=== PATIENT | female | born 1960 | race Caucasian/White ===

== ENCOUNTER 2016-11-15 07:55 | Day surgery (SDC) | payer OTHER ==
--- NOTE | ~2016-11-15 | EGD ---
EGD REPORT [facility] [address] [place] [address] NAME: JAYLIN MURPHY : 62 STATUS : REG [facility] [place] PAT#: [id number] AGE: 56 ADM/REG DATE : 11/15/16 MR#: [id number] REPORT SERV DATE: 11/15/16 DICTATED BY: GARY JUSTICE DATE: 11/15/16 REPORT STATUS : Draft TRANSCRIBED BY: [facility] DATE: 11/15/16 Endoscopy Center Patient Name: Jaylin Murphy Date of : 1960 Attending MD: GARY JUSTICE MD Procedure Date No Time: 11/15/2016 Procedure: Colonoscopy Indications: Colon cancer screening in patient at increased risk: Family history of colon polyps, Last colonoscopy: 2010 Referring MD: JANAY MCGRATH Medicines: See the Anesthesia note for documentation of the administered medications Complications: No immediate complications. Procedure: Pre-Anesthesia Assessment: - ASA Grade Assessment: II - A patient with mild systemic disease. After I obtained informed consent, the scope was passed under direct vision. Throughout the procedure, the patient's blood pressure, pulse, and oxygen saturations were monitored continuously. The PCF [id number] was introduced through the anus and advanced to the cecum, identified by appendiceal orifice and ileocecal valve. The colonoscopy was performed without difficulty. The patient tolerated the procedure well. The quality of the bowel preparation was adequate. Minimal fecal debris. Findings: The perianal and digital rectal examinations were normal. Internal hemorrhoids were found during retroflexion and were small. Impression: - Internal hemorrhoids. Recommendation: - Patient has a contact number available for emergencies. The signs and symptoms of potential delayed complications were discussed with the patient. Return to normal activities tomorrow. Written discharge instructions were provided to the patient. - Regular diet. - Continue present medications. - Repeat colonoscopy in 5 years for screening purposes. Procedure Code(s): --- Professional --- 50584, Colonoscopy, flexible, proximal to splenic flexure; diagnostic, with or without collection of specimen(s) by brushing or washing, with or without EGD REPORT [facility] [address] [place] [place] [place] [address] NAME: JAYLIN MURPHY : [birth year] STATUS : REG [facility]#: [id number] AGE: 56 ADM/REG DATE : 11/15/16 MR#: [id number] REPORT SERV DATE: 11/15/16 DICTATED BY: GARY JUSTICE DATE: 11/15/16 REPORT STATUS : Draft TRANSCRIBED BY: [employer] DATE: 11/15/16 colon decompression (separate procedure) Diagnosis Code(s): --- Professional --- K64.8, Other hemorrhoids Z12.11, Encounter for screening for malignant neoplasm of colon Z83.71, Family history of colonic polyps CPT copyright 2013 [employer]. All rights reserved. The codes documented in this report are preliminary and upon sorority supervisor review may be revised to meet current compliance requirements. Gary Justice MD GARY JUSTICE MD 11/15/2016 9:41 AM This report has been signed electronically. Number of Addenda: 0 Note Initiated On: 11/15/2016 9:20 AM Scope Withdrawal Time 0 hours 6 minutes 12 seconds [address] [place] [id number]
[~2016-11-15 07:55] MED LIST: ARMOUR THYRO15 MG PO; ARMOUR THYRO60 MG PO; MINIVELLE1 EAC1 TOP; MULTIPLE VIT PO; PROMETRIUM PO; SYN112 PO
== END 2016-11-15 23:59 | disposition home or self-care (01) ==
LOC: DMU 07:55
PROVIDERS: Internal Medicine Gastroenterology
PROC: 0DJD8ZZ Inspection of Lower Intestinal Tract, Via Natural or Artificial Opening Endoscopic (ICD-10-PCS; principal; 2016-11-15 09:30)
DX: Z12.11 Encounter for screening for malignant neoplasm of colon (principal); K64.8 Other hemorrhoids; Z83.71 Family history of colonic polyps; E03.9 Hypothyroidism, unspecified; I49.3 Ventricular premature depolarization; Z88.0 Allergy status to penicillin
CPT/HCPCS: 84703; J2405